=== PATIENT | male | born 1980 | race Caucasian/White ===

== ENCOUNTER 2017-08-31 19:19 | Emergency (ER) | payer SELFPAY ==
--- NOTE | 2017-08-31 20:30 | NUR ---
PATIENT CALLED TO BE TRIAGE NO RESPONSE PATIENT LEFT WITHOUT BEING SEEN BY DR. GAYTAN. NO FURTHER CARE PROVIDED FOR PATIENT.
== END 2017-08-31 20:30 | disposition left against medical advice (07) ==
LOC: MED 19:19
DX: Z53.21 Procedure and treatment not carried out due to patient leaving prior to being seen by health care provider (principal)